=== PATIENT | male | born 1940 | race Caucasian/White ===

== ENCOUNTER 2021-08-26 10:09 | Day surgery (SDC) | payer MEDICARE, OTHER ==
[2021-08-26] MEDS ORDERED: Midazolam 1 MG/ML 2 ML SDV IV ONE (10:10)
[2021-08-26] MEDS ORDERED: Dexamethasone 4 MG/ML SDV IV ONE (10:10)
[2021-08-26] MEDS ORDERED: Sodium Chloride 0.9% 10 ML Syringe IV ONE (10:10)
[2021-08-26] MEDS ORDERED: Phenylephrine 10% Ophth Soln 5 ML Bot EYELF ONE (10:45)
[2021-08-26] MEDS ORDERED: Timolol Maleate 0.5% Ophth Soln 5 ML Bottle EYELF ONE (10:45)
[2021-08-26] MEDS ORDERED: Sodium Chloride 0.9% 10 ML Syringe FLUSH PRN (10:45)
[2021-08-26] MEDS ORDERED: Acetaminophen/Codeine 300-30 MG Tab PO PRN (10:45)
[2021-08-26] MEDS ORDERED: Moxifloxacin 0.5% Ophth Soln 3 ML Bottle EYELF ONE (10:45)
[2021-08-26] MEDS ORDERED: Tropicamide 1% Ophth Soln 15 ML Bottle EYELF ONE (10:45)
[2021-08-26] MEDS ORDERED: Proparacaine 0.5% Ophth Soln 15 ML Bottle EYELF ONE (10:45)
[2021-08-26] MEDS ORDERED: Povidone-Iodine 5% Sterile Ophth Soln 30 ML Bottle EYELF ONE ×2 (10:45→11:15)
[2021-08-26] MEDS ORDERED: Cataract Ophth Solution EYELF ONE (10:45)
[2021-08-26] MEDS ORDERED: Acetaminophen 325 MG Tab PO PRN (10:45)
[2021-08-26] MEDS ORDERED: Ondansetron 4 MG/2 ML SDV IVPUSH PRN (10:45)
[2021-08-26] MEDS ORDERED: Lidocaine 1% 30 ML SDV ONE (11:15)
[2021-08-26] MEDS ORDERED: Tetracaine HCl/PF 0.5% 4 ML Bottle EYELF ONE (11:15)
[2021-08-26] MEDS ORDERED: Diclofenac Sodium 0.1% Ophth Soln 5 ML Bottle EYELF ONE (11:16)
[2021-08-26] MEDS ORDERED: Apraclonidine 0.5% Ophth Soln 5 ML Bot EYELF ONE (11:16)
[2021-08-26] MEDS ORDERED: Dexamethasone/Neomycin/Polymyxin B Ophth Oint 3.5 GM Tube EYELF ONE (11:16)
[2021-08-26] MEDS ORDERED: Vancomycin 500 MG SDV EYELF ONE (11:17)
[2021-08-26] MEDS ORDERED: Balanced Salt Solution Ophth Irrig 500 ML Bottle IOCULAR ONE (11:17)
[2021-08-26] MEDS ORDERED: Chondroitin Sulfate/Hyaluronate Sodium Ophth Inj 0.75 ML Syringe EYELF ONE (11:17)
== END 2021-08-26 12:20 | disposition home or self-care (01) ==
LOC: DL.SDS 10:09
PROVIDERS: ATTEND Ophthalmology
DX: H25.812 Combined forms of age-related cataract, left eye (principal); E11.36 Type 2 diabetes mellitus with diabetic cataract; E11.22 Type 2 diabetes mellitus with diabetic chronic kidney disease; N18.30 Chronic kidney disease, stage 3 unspecified; J45.909 Unspecified asthma, uncomplicated; Z98.890 Other specified postprocedural states; Z87.891 Personal history of nicotine dependence; Z79.84 Long term (current) use of oral hypoglycemic drugs; Z79.899 Other long term (current) drug therapy; Z88.7 Allergy status to serum and vaccine; Z88.0 Allergy status to penicillin
CPT/HCPCS: 00142; A9270-GY; J1100; J2250; J3370; V2787-GY

== ENCOUNTER 2021-09-23 09:27 | Day surgery (SDC) | payer MEDICARE, OTHER ==
[~2021-09-23 09:27] MED LIST: Acetaminophen 325 MG Tab PO PRN; Acetaminophen/Codeine 300-30 MG Tab PO PRN; Cataract Ophth Solution EYERT ONE; Moxifloxacin 0.5% Ophth Soln 3 ML Bottle EYERT ONE; Ondansetron 4 MG/2 ML SDV IVPUSH PRN; Phenylephrine 10% Ophth Soln 5 ML Bot EYERT ONE; Povidone-Iodine 5% Sterile Ophth Soln 30 ML Bottle EYERT ONE; Proparacaine 0.5% Ophth Soln 15 ML Bottle EYERT ONE; Sodium Chloride 0.9% 10 ML Syringe FLUSH PRN; Timolol Maleate 0.5% Ophth Soln 5 ML Bottle EYERT ONE; Tropicamide 1% Ophth Soln 15 ML Bottle EYERT ONE
[2021-09-23] MEDS ORDERED: Dexamethasone 4 MG/ML SDV IV ONE (09:28)
[2021-09-23] MEDS ORDERED: Midazolam 1 MG/ML 2 ML SDV IV ONE (09:28)
[2021-09-23] MEDS ORDERED: Tetracaine HCl/PF 0.5% 4 ML Bottle EYERT ONE (10:42)
[2021-09-23] MEDS ORDERED: Lidocaine 1% 30 ML SDV ONE (10:42)
[2021-09-23] MEDS ORDERED: Povidone-Iodine 5% Sterile Ophth Soln 30 ML Bottle EYERT ONE (10:43)
[2021-09-23] MEDS ORDERED: Diclofenac Sodium 0.1% Ophth Soln 5 ML Bottle EYERT ONE (10:43)
[2021-09-23] MEDS ORDERED: Apraclonidine 0.5% Ophth Soln 5 ML Bot EYERT ONE (10:43)
[2021-09-23] MEDS ORDERED: Vancomycin 500 MG SDV EYERT ONE (10:44)
[2021-09-23] MEDS ORDERED: Balanced Salt Solution Ophth Irrig 500 ML Bottle IOCULAR ONE (10:44)
[2021-09-23] MEDS ORDERED: Dexamethasone/Neomycin/Polymyxin B Ophth Oint 3.5 GM Tube EYERT ONE (10:44)
[2021-09-23] MEDS ORDERED: Chondroitin Sulfate/Hyaluronate Sodium Ophth Inj 0.75 ML Syringe EYERT ONE (10:45)
[2021-09-23] MEDS ORDERED: Dexamethasone 4 MG/ML SDV IOCULAR ONE (10:49)
== END 2021-09-23 11:55 | disposition home or self-care (01) ==
LOC: DL.SDS 09:27
PROVIDERS: ATTEND Ophthalmology
DX: E11.36 Type 2 diabetes mellitus with diabetic cataract (principal); H25.811 Combined forms of age-related cataract, right eye; E11.22 Type 2 diabetes mellitus with diabetic chronic kidney disease; J45.909 Unspecified asthma, uncomplicated; M10.9 Gout, unspecified; Z98.890 Other specified postprocedural states; Z87.891 Personal history of nicotine dependence; Z79.84 Long term (current) use of oral hypoglycemic drugs; Z88.0 Allergy status to penicillin; Z88.7 Allergy status to serum and vaccine; Z79.899 Other long term (current) drug therapy
CPT/HCPCS: 00142; A9270-GY; J1100; J2250; J3370; J3490

== ENCOUNTER 2022-05-26 17:04 | Emergency (ER) | payer MEDICARE, OTHER ==
[2022-05-26 19:13] LABS: ANION GAP 9.4 mEq/L (7-13)
[2022-05-26] MEDS ORDERED: Sodium Chloride 0.9% 500 ML IV SCH (20:30)
[2022-05-27] MEDS ORDERED: Ondansetron 4 MG/2 ML SDV IVPUSH ONE (00:15)
== END 2022-05-27 00:35 | disposition home or self-care (01) ==
LOC: DL.ED 17:04
DX: K52.9 Noninfective gastroenteritis and colitis, unspecified (principal); K59.00 Constipation, unspecified; E11.9 Type 2 diabetes mellitus without complications; E66.9 Obesity, unspecified; Z68.26 Body mass index [BMI] 26.0-26.9, adult; Z90.49 Acquired absence of other specified parts of digestive tract; Z88.0 Allergy status to penicillin; Z88.7 Allergy status to serum and vaccine
CPT/HCPCS: 36415; 74019; 80053; 83605; 85025; 86140; 96361; 96374; 99284; J2405; J7040

== ENCOUNTER 2022-11-14 08:55 | Emergency (ER) | payer MEDICARE, OTHER ==
[2022-11-14] MEDS ORDERED: Ondansetron 4 MG/2 ML SDV IV ONE (09:24)
[2022-11-14] MEDS ORDERED: Morphine 4 MG/ML Syringe IVPUSH ONE ×3 (09:25→10:27)
[2022-11-14] MEDS ORDERED: Sodium Chloride 0.9% 1,000 ML IV SCH (09:30)
[2022-11-14 09:49] LABS: BASOPHILS PERCENT AUTO 0.1 % (0.0-1.0); HEMOGLOBIN 11.8 g/dL (14.0-18.0); LYMPHOCYTES PERCENT AUTO 22.7 % (20.5-50.1); MEAN CORPUSCULAR HEMOGLOBIN 30.8 pg (27.0-34.0); MEAN CORPUSCULAR HGB CONC 32.8 g/dL (33.0-35.0); MONOCYTES PERCENT AUTO 6.5 % (2-8); NEUTROPHILS PERCENT AUTO 69.7 % (42.2-75.2); PLATELET COUNT,PLT 146 10^3/uL (150-450); RED BLOOD CELL COUNT 3.83 10^6/uL (4.6-6.2)
[2022-11-14 10:03] LABS: PROTHROMBIN TIME 9.8 SEC (9.0-12.0)
[2022-11-14 10:05] LABS: ALBUMIN 2.2 g/dL (3.4-5.0); BILIRUBIN TOTAL 0.5 mg/dL (0.2-1.0); BUN/CREATININE RATIO 32.6 (No establ ref range); CALCIUM 8.4 mg/dL (8.5-10.1); CREATININE 0.95 mg/dL (0.70-1.30); EST CRCL DRUG DOSING (CG) 66.58 mL/min; PROTEIN TOTAL,TP 5.8 g/dL (6.4-8.2)
[2022-11-14 10:13] LABS: LACTIC ACID 3.4 mmol/L (0.4-2.0)
[2022-11-14 10:21] LABS: A/G RATIO 0.61; ANION GAP 10.9 mEq/L (7-13); POTASSIUM,K 3.9 mmol/L (3.5-5.1)
[2022-11-14] MEDS ORDERED: Iopamidol 612 MG/ML 100 ML Bottle IVPUSH ONE (10:24)
[2022-11-14 13:37] LABS: APPEARANCE,URINE CLEAR (CLEAR); BILIRUBIN,URINE NEGATIVE (NEGATIVE); COLOR,URINE DARK YELLOW (YELLOW); GLUCOSE,URINE NEGATIVE (NEGATIVE); KETONES,URINE NEGATIVE (NEGATIVE); LEUKOCYTE ESTERASE,URINE NEGATIVE (NEGATIVE); NITRITE,URINE NEGATIVE (NEGATIVE); OCCULT BLOOD,URINE NEGATIVE (NEGATIVE); PROTEIN,URINE NEGATIVE (NEGATIVE)
== END 2022-11-14 14:10 ==
LOC: DL.ED 08:55
DX: C22.9 Malignant neoplasm of liver, not specified as primary or secondary (principal); J91.0 Malignant pleural effusion; J93.9 Pneumothorax, unspecified; J45.909 Unspecified asthma, uncomplicated; E11.9 Type 2 diabetes mellitus without complications; Z88.0 Allergy status to penicillin; Z88.7 Allergy status to serum and vaccine; Z79.899 Other long term (current) drug therapy
CPT/HCPCS: 36415; 71045; 71260; 74177; 80053; 81003; 82150; 83605; 83690; 85025; 85610; 85730; 87040; 96361; 96374; 96375; 96376; 99285; 99285-25; J2270; J2405; J7030; Q9967